=== PATIENT | female | born 2000 | race Caucasian/White ===

== ENCOUNTER 2024-06-15 23:45 | Emergency (ER) | payer SELFPAY ==
[~2024-06-15] VITALS: Ht 162.6 cm; Wt 61.2 kg
[2024-06-15 23:45] VITALS: PULSE 84; RESP 18; TEMP 98.1
[2024-06-16] MEDS ORDERED: VALTREX1000 MG PO (00:27)
[2024-06-16] MEDS ORDERED: KETOROLAC TROME10 MG PO (00:28)
[2024-06-16 00:37] VITALS: BP 135/73; PULSE 84; RESP 18; TEMP 97.1; O2SAT 100
[2024-06-16] MEDS: TRAMADOL HCL 50 MG TAB PO ONE (00:40)
== END 2024-06-16 00:37 | disposition home or self-care (01) ==
LOC: FSED 23:51
DX: S30.826A Blister (nonthermal) of unspecified external genital organs, female, initial encounter (principal)
CPT/HCPCS: 81003; 81025; 99284